=== PATIENT | female | born 1990 | race Caucasian/White ===

== ENCOUNTER 2016-09-18 17:53 | Emergency (ER) | payer SELFPAY ==
[~2016-09-18] VITALS: Ht 152.4 cm; Wt 76.2 kg
[2016-09-18 18:48] VITALS: BP 146/93
--- NOTE | 2016-09-18 18:57 | PHYS DOC ---
Past Medical History Past Medical History: Other Additional Past Medical Histor: desmoid tumor, Past Surgical History: , Tonsillectomy, Other Additional Past Surgical Histo: desmoid tumor removal, Alcohol Use: None Drug Use: None Adult General Chief Complaint Chief Complaint: DENTAL PROBLEM HPI HPI Patient is a 26 year old female who presents with moderate right upper and lower gum dental pain that began 5 days ago. Patient denies any fever or trismus , she states she has an appointment with her dentist on 30 September 2016 Review of Systems Review of Systems Constitutional: See history of present illness Eyes: Denies change in visual acuity, redness, or eye pain [] HENT: Dental pain Integument: Denies rash or skin lesions [] Neurologic: Denies headache, focal weakness or sensory changes [] Endocrine: Denies polyuria or polydipsia [] Allergies Allergies Allergies Coded Allergies Type Severity Reaction Last Updated Verified No Known Drug Allergies 09/18/16 No Physical Exam Physical Exam Constitutional: Well developed, well nourished, no acute distress, non-toxic appearance. [] HENT: Normocephalic, atraumatic, bilateral external ears normal, oropharynx moist, no oral exudates, nose normal. [] Scattered dental caries throughout her teeth, no obvious dental abscess, no gum redness noted. Skin: Warm, dry, no erythema, no rash. [] Back: No tenderness, no CVA tenderness. [] Extremities: No tenderness, no cyanosis, no clubbing, ROM intact, no edema. [] Neurologic: Alert and oriented X 3, normal motor function, normal sensory function, no focal deficits noted. [] Psychologic: Affect normal, judgement normal, mood normal. [] Current Patient Data Vital Signs Vital Signs Date Time Temp Pulse Resp B/P Pulse Ox O2 Delivery O2 Flow Rate FiO2 09/18/16 18:48 98.5 73 18 99 Room Air 98.5 EKG EKG [] Radiology/Procedures Radiology/Procedures [] Course & Med Decision Making Course & Med Decision Making Pertinent Labs and Imaging studies reviewed. (See chart for details) Examination shows patient has scattered dental caries, dental pain with no abscess, discharged with antibiotics and pain medicine. Follow-up with her dentist on September 30, 2016. Provided return precautions and discharged in stable condition. Dragon Disclaimer Dragon Disclaimer This electronic medical record was generated, in whole or in part, using a voice recognition dictation system. Departure Departure Impression: Primary Impression: Dentalgia Additional Impression: Dental caries Disposition: 01 HOME, SELF-CARE Condition: STABLE Referrals: NO PCP (PCP) Follow-up with your own dentist as scheduled Patient Instructions: Dental Caries Additional Instructions: You were seen for dental caries and dental pain. Complete your antibiotics. Take the pain medicine as needed. Follow-up with the dentist as soon as you can. Scripts Amoxicillin 875 Mg Tablet1 Tab PO BID #20 TAB Prov:BHAVNA QUINTEROS APRN 09/18/16 Hydrocodone/Apap 5-325 ([place] 5-325 Tablet)1 Each Tablet1-2 Tab PO Q4-6HRS #12 TAB Prov:BHAVNA QUINTEROS APRN 09/18/16 Problem Qualifiers BHAVNA QUINTEROS APRN Sep 18, 2016 18:57
[2016-09-18] MEDS ORDERED: HYDR-971 PO (19:03)
[2016-09-18] MEDS ORDERED: AMOX875T PO (19:03)
== END 2016-09-18 19:07 | disposition home or self-care (01) ==
LOC: ER 17:56
DX: K02.9 Dental caries, unspecified (principal)
CPT/HCPCS: 99283

== ENCOUNTER 2018-08-26 17:39 | Emergency (ER) | payer SELFPAY ==
[~2018-08-26] VITALS: Ht 152.4 cm; Wt 72.6 kg
[~2018-08-26 17:39] MED LIST: AMOX875T PO; HYDR-3164 PO
[2018-08-26] MEDS ORDERED: MECLIZINE HCL 12.5 MG TABLET. PO ONE (18:30)
--- NOTE | 2018-08-26 18:33 | EKG ---
[facility] [address] [place] [address] Test Date: 2018-08-26 Test Time: 18:29:02 Pat Name: URIEL GRAJEDA Department: Room: Gender: F Instrument Maker: : 1990 Requested By: BHAVNA QUINTEROS Order Number: [id number] Reading MD: Denis Mars Measurements Intervals [place] Rate: 88 P: 67 [place]: 138 QRS: 0 QRSD: 80 T: 21 QT: 380 QTc: 463 Interpretive Statements SINUS RHYTHM LEFTWARD AXIS INCOMPLETE RIGHT BUNDLE BRANCH BLOCK T ABNORMALITY IN ANTEROSEPTAL LEADS ABNORMAL ECG RI6.01 No previous ECG available for comparison Electronically Signed On 09-04-2018 8:03:48 TREASURY ASSISTANT by Denis Mars
--- NOTE | 2018-08-26 18:36 | PHYS DOC ---
Past Medical History Past Medical History: Other Additional Past Medical Histor: desmoid tumor, Past Surgical History: , Tonsillectomy, Other Additional Past Surgical Histo: desmoid tumor removal, Alcohol Use: None Drug Use: None Adult General Chief Complaint Chief Complaint: DIZZY/LIGHT HEADED HPI HPI Patient is a 28 year old female with no significant medical history who presents to the ED today with multiple complaints. Patient states her entire right side from her neck to her toes are swollen, patient states her right lower extremities especially her right thigh can not fit into her regular pants. Patient states this has been going on for 4 days. She is also complaining of pain to right lateral neck, she states every night she sleeps for the last 4 days she wakes up with numbness and tingling to the entire right side of her body. Patient is also complaining of dizziness for the last 4 days. Patient denies anything exacerbating or making the dizziness better. She states she missed work for a couple days last week. 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 Patient also states she's not had sleep for the last 4 days. She states she would like to be admitted. Denies any injury. Patient is crying as we speak. Denies any suicidal homicidal ideations. She states she does not have any stress. Informed patient she is crying in a situation that does not involve tears him curious if she has an underlying psychiatric problems like or stress. She continued to deny saying she does not have any psychiatric illness or any other stressors in her life. PCP none Review of Systems Review of Systems Constitutional: Denies fever or chills [] Eyes: Denies change in visual acuity, redness, or eye pain [] HENT: Denies nasal congestion or sore throat [] Respiratory: Denies cough or shortness of breath [] Cardiovascular: No additional information not addressed in HPI [] GI: Denies abdominal pain, nausea, vomiting, bloody stools or diarrhea [] : Denies dysuria or hematuria [] Musculoskeletal: Right sided swelling, pain Integument: Denies rash or skin lesions [] Neurologic: Denies headache, focal weakness or sensory changes [] All other systems were reviewed and found to be within normal limits, except as documented in this note. Current Medications Current Medications Current Medications Medications (Trade) Dose Ordered Sig/Randa Start Time Stop Time Status Last Admin Dose Admin Meclizine HCl (Antivert) 25 mg 1X ONCE 08/26/18 18:30 08/26/18 18:36 DC 08/26/18 19:11 25 MG Allergies Allergies Allergies Coded Allergies Type Severity Reaction Last Updated Verified hydrocodone Allergy Intermediate HIVES 08/26/18 Yes Physical Exam Physical Exam Constitutional: Well developed, well nourished, no acute distress, non-toxic appearance. [] HENT: Normocephalic, atraumatic, bilateral external ears normal, oropharynx moist, no oral exudates, nose normal. [] Eyes: PERRLA, EOMI, conjunctiva normal, no discharge. [] Neck: Normal range of motion, no tenderness, supple, no stridor. [] Cardiovascular:Heart rate regular rhythm, no murmur [] Lungs & Thorax: Bilateral breath sounds clear to auscultation [] Abdomen: Bowel sounds normal, soft, no tenderness, no masses, no pulsatile masses. [] Skin: Warm, dry, no erythema, no rash. [] Back: No tenderness, no CVA tenderness. [] Extremities: No tenderness, no cyanosis, no clubbing, ROM intact, no edema. [] Neurologic: Alert and oriented X 3, normal motor function, normal sensory function, no focal deficits noted. Cranial nerves II through XII intact Psychologic: Appears tearful, depressed mood Current Patient Data Vital Signs Vital Signs Date Time Temp Pulse Resp B/P (MAP) Pulse Ox O2 Delivery O2 Flow Rate FiO2 08/26/18 17:39 98.4 107 20 140/80 (100) 97 Room Air 98.4 Lab Values Laboratory Tests Test 08/26/18 18:10 08/26/18 18:17 08/26/18 18:21 08/26/18 18:35 Urine Collection Type Unknown Urine Color Yellow Urine Clarity Clear Urine pH 6.0 Urine Specific Alexander 1.025 Urine Protein Negative mg/dL (NEG-TRACE) Urine Glucose (UA) Negative mg/dL (NEG) Urine Ketones (Stick) >=80 mg/dL (NEG) Urine Blood Trace (NEG) Urine Nitrite Negative (NEG) Urine Bilirubin Negative (NEG) Urine Urobilinogen Dipstick 0.2 mg/dL (0.2 mg/dL) Urine Leukocyte Esterase Negative (NEG) Urine RBC 1-2 /HPF (0-2) Urine WBC Rare /HPF (0-4) Urine Squamous Epithelial Cells Few /LPF Urine Bacteria 0 /HPF (0-FEW) Urine Mucus Mod /LPF Urine Opiates Screen Neg (NEG) Urine Methadone Screen Neg (NEG) Urine Barbiturates Neg (NEG) Urine Phencyclidine Screen Neg (NEG) Urine Amphetamine/Methamphetamine Neg (NEG) Urine Benzodiazepines Screen Neg (NEG) Urine Cocaine Screen Neg (NEG) Urine Cannabinoids Screen Pos (NEG) Urine Ethyl Alcohol Neg (NEG) POC Urine HCG, Qualitative Hcg negative (Negative) Glucose (Fingerstick) 92 mg/dL (70-99) White Blood Count 6.3 x10^3/uL (4.0-11.0) Red Blood Count 4.77 x10^6/uL (3.50-5.40) Hemoglobin 14.4 g/dL (12.0-15.5) Hematocrit 41.8 % (36.0-47.0) Mean Corpuscular Volume 88 fL (79-100) Mean Corpuscular Hemoglobin 30 pg (25-35) Mean Corpuscular Hemoglobin Concent 35 g/dL (31-37) Red Cell Distribution Width 13.0 % (11.5-14.5) Platelet Count 231 x10^3/uL (140-400) Neutrophils (%) (Auto) 57 % (31-73) Lymphocytes (%) (Auto) 33 % (24-48) Monocytes (%) (Auto) 9 % (0-9) Eosinophils (%) (Auto) 1 % (0-3) Basophils (%) (Auto) 1 % (0-3) Neutrophils # (Auto) 3.6 x10^3uL (1.8-7.7) Lymphocytes # (Auto) 2.1 x10^3/uL (1.0-4.8) Monocytes # (Auto) 0.6 x10^3/uL (0.0-1.1) Eosinophils # (Auto) 0.0 x10^3/uL (0.0-0.7) Basophils # (Auto) 0.0 x10^3/uL (0.0-0.2) Test 08/26/18 19:30 Sodium Level 142 mmol/L (136-145) Potassium Level 3.2 mmol/L (3.5-5.1) L Chloride Level 106 mmol/L (98-107) Carbon Dioxide Level 21 mmol/L (21-32) Anion Gap 15 (6-14) H Blood Urea Nitrogen 7 mg/dL (7-20) Creatinine 0.7 mg/dL (0.6-1.0) Estimated GFR (Cockcroft-Gault) 98.9 BUN/Creatinine Ratio 10 (6-20) Glucose Level 94 mg/dL (70-99) Calcium Level 9.5 mg/dL (8.5-10.1) Magnesium Level 1.6 mg/dL (1.8-2.4) L Total Bilirubin 0.4 mg/dL (0.2-1.0) Aspartate Amino Transferase (AST) 12 U/L (15-37) L Alanine Aminotransferase (ALT) 12 U/L (14-59) L Alkaline Phosphatase 51 U/L (46-116) Troponin I Quantitative < 0.017 ng/mL (0.000-0.055) IE-[id number]-Type Natriuretic Peptide 112 pg/mL (0-124) Total Protein 7.8 g/dL (6.4-8.2) Albumin 4.3 g/dL (3.4-5.0) Albumin/Globulin Ratio 1.2 (1.0-1.7) Lipase 89 U/L (73-393) Thyroid Stimulating Hormone (TSH) 1.125 uIU/mL (0.358-3.74) Laboratory Tests 08/26/18 18:35 Laboratory Tests 08/26/18 19:30 EKG EKG 18:[address] Donahue sinus rhythm heart rate 88 no STEMI[] Radiology/Procedures Radiology/Procedures [] Course & Med Decision Making Course & Med Decision Making Pertinent Labs and Imaging studies reviewed. (See chart for details) This is a 28-year-old female patient presenting to the ED today with multiple complaints including right sided numbness for 4 days, right-sided swelling, right lateral neck pain, lack of sleep, dizziness, symptoms for 4 days. She also missed a couple days of work last week. She states her mother requested her to come to the ED to be evaluated. Patient has no notable edema. Negative urine hCG, urine analysis is no infection. CBC with a normal WBC, EKG was negative, CMP potassium of 3.2, patient was given oral potassium replacement. CT of the head is negative for any acute findings, chest x-ray and cervical spine x-rays interpreted by Dr. Donahue and negative for any acute findings. Results were communicated to patient, she started crying again stating she has pain on the entire right side. Recommended anti-inflammatories and muscle relaxer. She continued to cry. Recommended she follows up with her PCP. She states she does not want to leave because we did not find anything wrong with her. Informed patient she does not meet the admission criteria. She needs to be discharged and follow-up with the primary care doctor provided. Patient started crying again. She was discharged to home. Dragon Disclaimer Dragon Disclaimer This electronic medical record was generated, in whole or in part, using a voice recognition dictation system. Departure Departure Impression: Primary Impression: Dizziness Additional Impression: Paresthesia Disposition: HOME, SELF-CARE Condition: STABLE Referrals: NO PCP (PCP) Follow up with the primary care doctor from the list provided Patient Instructions: Dizziness, [id number], Paresthesia Additional Instructions: You were evaluated in the emergency room and had an extensive workup including a CT of the head, cervical spine x-ray, chest x-ray, which were negative for any acute findings, your labs was negative for any acute findings. We provided you list of primary care doctors, follow-up with them as an outpatient. Scripts Methylprednisolone (MEDROL) 4 Mg Tab.ds.pk 1 PKG PO UD, #1 PKG Prov: BHAVNA QUINTEROS APRN 08/26/18 Diclofenac Sodium (DICLOFENAC SODIUM) 50 Mg Tablet.dr 1 TAB PO BID, #20 TAB 0 Refills Prov: BHAVNA QUINTEROS APRN 08/26/18 Gabapentin (GABAPENTIN) 800 Mg Tablet 800 MG PO TID for NEUROGENIC PAIN, #20 TAB Prov: BHAVNA QUINTEROS APRN 08/26/18 Cyclobenzaprine Hcl (CYCLOBENZAPRINE HCL) 10 Mg Tablet 1 TAB PO TID, #20 TAB Prov: BHAVNA QUINTEROS APRN 08/26/18 Problem Qualifiers BHAVNA QUINTEROS APRN Aug 26, 2018 18:36
[2018-08-26 18:38] LABS: BILIRUBIN,URINE NEGATIVE (NEG); CLARITY,URINE CLEAR; COLOR,URINE YELLOW; NITRITE,URINE NEGATIVE (NEG); PROTEIN,URINE NEGATIVE (NEG-TRACE); UROBILINOGEN,URINE 0.2 mg/dL (0.2 mg/dL)
[2018-08-26 18:44] LABS: BACTERIA,URINE 0 /HPF (0-FEW); SQUAMOUS EPITHELIAL CELL,UR FEW /LPF; WBC,URINE RARE /HPF (0-4)
[2018-08-26 18:45] LABS: AMPHETAMINE/METHAMPHETAMINE NEG (NEG); BARBITURATES NEG (NEG); BENZODIAZEPINES NEG (NEG); CANNABINOIDS POS (NEG); COCAINE NEG (NEG); METHADONE NEG (NEG); OPIATES NEG (NEG); PHENCYCLIDINE NEG (NEG)
[2018-08-26 18:46] LABS: BASO % 1 % (0-3); EOS % 1 % (0-3); HEMATOCRIT 41.8 % (36.0-47.0); HEMOGLOBIN 14.4 g/dL (12.0-15.5); LYMPH # 2.1 x10^3/uL (1.0-4.8); LYMPH % 33 % (24-48); MEAN CORPUSCULAR HEMOGLOBIN 30 pg (25-35); MEAN CORPUSCULAR HGB CONC 35 g/dL (31-37); MEAN CORPUSCULAR VOLUME 88 fL (79-100); MONO # 0.6 x10^3/uL (0.0-1.1); MONO % 9 % (0-9); NEUT # 3.6 x10^3uL (1.8-7.7); NEUT % 57 % (31-73); PLATELET COUNT 231 x10^3/uL (140-400); RED BLOOD COUNT 4.77 x10^6/uL (3.50-5.40); WHITE BLOOD COUNT 6.3 x10^3/uL (4.0-11.0)
--- NOTE | 2018-08-26 19:10 | RAD ---
INDICATION: dizziness and neck pain, with nausea and vomiting COMPARISON: None. TECHNIQUE: Axial CT images obtained through the head without intravenous contrast. One or more of the following individualized dose reduction techniques were utilized for this examination: 1. Automated exposure control; 2. Adjustment of the mA and/or kV according to patient size; 3. Use of iterative reconstruction technique. FINDINGS: No intracranial hemorrhage. No midline shift. Basal cisterns patent. Ventricles and sulci are unremarkable. No acute osseous abnormality. Orbits and paranasal sinuses unremarkable. IMPRESSION: 1. No acute intracranial hemorrhage. Electronically signed by: Kale Elizondo MD (08/26/2018 7:06 PM) [facility]
[2018-08-26 19:53] LABS: CALCIUM 9.5 mg/dL (8.5-10.1); CREATININE 0.7 mg/dL (0.6-1.0); GFR 98.9; POTASSIUM 3.2 mmol/L (3.5-5.1)
[2018-08-26 19:57] LABS: ALBUMIN 4.3 g/dL (3.4-5.0); ALBUMIN/GLOBULIN RATIO 1.2 (1.0-1.7); MAGNESIUM 1.6 mg/dL (1.8-2.4); TOTAL BILIRUBIN 0.4 mg/dL (0.2-1.0); TOTAL PROTEIN 7.8 g/dL (6.4-8.2)
[2018-08-26] MEDS ORDERED: DICL50TA4 PO (20:26)
[2018-08-26] MEDS ORDERED: METH4TAB2 PO (20:26)
[2018-08-26] MEDS ORDERED: CYCL10TA2 PO (20:26)
[2018-08-26] MEDS ORDERED: GABA800T3 PO (20:26)
[2018-08-26 20:30] VITALS: BP 132/75
[2018-08-26] MEDS ORDERED: POTASSIUM CHLORIDE 20 MEQ TABLET.ER. PO ONE (20:30)
--- NOTE | 2018-08-27 00:23 | RAD ---
Chest AP portable 08/26/2018. Reason for exam: Dizziness and right-sided neck pain for 4 days. No infiltrate or effusion is seen. Heart size and pulmonary vascularity appear normal. IMPRESSION: No acute abnormality. Cervical spine AP lateral and swimmer's views 08/26/2018 Alignment is normal. There is no apparent loss of vertebral body height or prevertebral soft tissue swelling to suggest fracture. No disc narrowing or destructive process is seen. IMPRESSION: Normal study. Electronically signed by: Haja Wallace Jr., MD (08/27/2018 12:19 AM) [facility]
[2018-08-28] MEDS ORDERED: FLUO20CA16 PO (17:42)
[2018-08-28] MEDS ORDERED: ALPR0.5T PO (17:43)
== END 2018-08-26 20:57 | disposition home or self-care (01) ==
LOC: ER 17:39
DX: R42 Dizziness and giddiness (principal); R20.2 Paresthesia of skin; M54.2 Cervicalgia; R22.9 Localized swelling, mass and lump, unspecified; Z88.5 Allergy status to narcotic agent
CPT/HCPCS: 36415; 70450; 71045; 72040; 80053; 80307; 81001; 81025; 82962; 83690; 83735; 83880; 84443; 84484; 85025; 93005; 99284; J8597

== ENCOUNTER 2018-09-17 21:39 | Emergency (ER) | payer SELFPAY ==
[~2018-09-17] VITALS: Ht 152.4 cm; Wt 74.8 kg
[~2018-09-17 21:39] MED LIST changes: +ALPR0.5T PO; +CYCL10TA2 PO; +DICL50TA4 PO; +FLUO20CA16 PO; +GABA800T3 PO; +METH4TAB2 PO
[2018-09-17 22:31] LABS: BASO # 0.1 x10^3/uL (0.0-0.2); BASO % 1 % (0-3); EOS # 0.3 x10^3/uL (0.0-0.7); EOS % 4 % (0-3); HEMATOCRIT 42.1 % (36.0-47.0); HEMOGLOBIN 14.4 g/dL (12.0-15.5); LYMPH # 2.1 x10^3/uL (1.0-4.8); LYMPH % 22 % (24-48); MEAN CORPUSCULAR HEMOGLOBIN 30 pg (25-35); MEAN CORPUSCULAR HGB CONC 34 g/dL (31-37); MEAN CORPUSCULAR VOLUME 89 fL (79-100); MONO # 0.6 x10^3/uL (0.0-1.1); MONO % 6 % (0-9); NEUT # 6.6 x10^3uL (1.8-7.7); NEUT % 68 % (31-73); PLATELET COUNT 288 x10^3/uL (140-400); RED BLOOD COUNT 4.74 x10^6/uL (3.50-5.40); RED CELL DISTRIBUTION WIDTH 13.3 % (11.5-14.5); WHITE BLOOD COUNT 9.7 x10^3/uL (4.0-11.0)
[2018-09-17 22:39] LABS: CALCIUM 8.9 mg/dL (8.5-10.1); CREATININE 0.7 mg/dL (0.6-1.0); GFR 98.9; POTASSIUM 3.1 mmol/L (3.5-5.1)
[2018-09-17] MEDS: IV NORMAL SALINE 1000ML BAG 1,000 ML IV ONE (22:46)
[2018-09-17 22:47] LABS: BILIRUBIN,URINE SMALL (NEG); COLOR,URINE YELLOW; NITRITE,URINE NEGATIVE (NEG); PH,URINE 5.5; PROTEIN,URINE NEGATIVE (NEG-TRACE); UROBILINOGEN,URINE 0.2 mg/dL (0.2 mg/dL)
[2018-09-17 22:53] LABS: BACTERIA,URINE 0 /HPF (0-FEW); CLARITY,URINE HAZY; RBC,URINE 0 /HPF (0-2); SQUAMOUS EPITHELIAL CELL,UR FEW /LPF; WBC,URINE 0 /HPF (0-4)
[2018-09-17] MEDS: POTASSIUM CHLORIDE 20 MEQ TABLET.ER. PO ONE (23:32)
--- NOTE | 2018-09-17 23:42 | PHYS DOC ---
Past Medical History Past Medical History: Other Additional Past Medical Histor: desmoid tumor Past Surgical History: , Tonsillectomy, Other Additional Past Surgical Histo: desmoid tumor removal Alcohol Use: None Drug Use: Marijuana Adult General Chief Complaint Chief Complaint: WEAKNESS/GENERALIZED HPI HPI Patient is a 28 year old female who presents with concerns of a possible infected tattoo on her left foot. Pt states she received the tattoo on 09/12/18 and states that yesterday she noticed redness and mild swelling around the ink. She denies any warmth or drainage from the area. States that after she poured peroxide over the tattoo today she had one episode of diarrhea. She denies any fever, abdominal pain, nausea, vomiting, shortness of breath, cough, or sore throat. She states that she was diaphoretic before the episode of diarrhea. Currently, she denies any pain or discomfort. Review of Systems Review of Systems Constitutional: Denies fever or chills [] HENT: Denies nasal congestion or sore throat [] Respiratory: Denies cough or shortness of breath [] Cardiovascular: No additional information not addressed in HPI [] GI: Denies abdominal pain, nausea, or vomiting; see HPI Musculoskeletal: Denies back pain or joint pain [] Integument: See HPI Neurologic: Denies headache, focal weakness or sensory changes [] Complete systems were reviewed and found to be within normal limits, except as documented in this note. Current Medications Current Medications Current Medications Medications (Trade) Dose Ordered Sig/Randa Start Time Stop Time Status Last Admin Dose Admin Potassium Chloride (Klor-Con) 40 meq 1X ONCE 09/17/18 23:30 09/17/18 23:31 DC 09/17/18 23:32 40 MEQ Sodium Chloride 1,000 ml @ 1,000 mls/hr 1X ONCE 09/17/18 22:45 09/17/18 23:44 09/17/18 22:46 1,000 MLS/HR Allergies Allergies Allergies Coded Allergies Type Severity Reaction Last Updated Verified hydrocodone Allergy Intermediate HIVES 08/26/18 Yes codeine Allergy Unknown 09/17/18 Yes Physical Exam Physical Exam Constitutional: Well developed, well nourished, no acute distress, non-toxic appearance. [] HENT: Normocephalic, atraumatic, bilateral external ears normal, oropharynx moist, no oral exudates, nose normal. [] Eyes: conjunctiva normal, no discharge. [] Neck: Normal range of motion, no stridor. [] Cardiovascular:Heart rate regular rhythm, no murmur [] Lungs & Thorax: Bilateral breath sounds clear to auscultation [] Abdomen: Bowel sounds normal, soft, no tenderness, no masses, no pulsatile masses. [] Skin: Warm, dry, no rash; healing tattoo noted to left foot with mild surrounding erythema, no warmth, edema, or tenderness to palpation. Extremities: No tenderness, no cyanosis, no clubbing, ROM intact, no edema. [] Neurologic: Alert and oriented X 3, normal motor function, normal sensory function, no focal deficits noted. [] Psychologic: Affect normal, judgement normal, mood normal. [] Current Patient Data Vital Signs Vital Signs Date Time Temp Pulse Resp B/P (MAP) Pulse Ox O2 Delivery O2 Flow Rate FiO2 09/17/18 23:18 94 100 09/17/18 21:44 97.4 20 142/91 (108) Room Air 97.4 Lab Values Laboratory Tests Test 09/17/18 22:21 09/17/18 22:35 White Blood Count 9.7 x10^3/uL (4.0-11.0) Red Blood Count 4.74 x10^6/uL (3.50-5.40) Hemoglobin 14.4 g/dL (12.0-15.5) Hematocrit 42.1 % (36.0-47.0) Mean Corpuscular Volume 89 fL (79-100) Mean Corpuscular Hemoglobin 30 pg (25-35) Mean Corpuscular Hemoglobin Concent 34 g/dL (31-37) Red Cell Distribution Width 13.3 % (11.5-14.5) Platelet Count 288 x10^3/uL (140-400) Neutrophils (%) (Auto) 68 % (31-73) Lymphocytes (%) (Auto) 22 % (24-48) L Monocytes (%) (Auto) 6 % (0-9) Eosinophils (%) (Auto) 4 % (0-3) H Basophils (%) (Auto) 1 % (0-3) Neutrophils # (Auto) 6.6 x10^3uL (1.8-7.7) Lymphocytes # (Auto) 2.1 x10^3/uL (1.0-4.8) Monocytes # (Auto) 0.6 x10^3/uL (0.0-1.1) Eosinophils # (Auto) 0.3 x10^3/uL (0.0-0.7) Basophils # (Auto) 0.1 x10^3/uL (0.0-0.2) Sodium Level 138 mmol/L (136-145) Potassium Level 3.1 mmol/L (3.5-5.1) L Chloride Level 103 mmol/L (98-107) Carbon Dioxide Level 24 mmol/L (21-32) Anion Gap 11 (6-14) Blood Urea Nitrogen 11 mg/dL (7-20) Creatinine 0.7 mg/dL (0.6-1.0) Estimated GFR (Cockcroft-Gault) 98.9 Glucose Level 158 mg/dL (70-99) H Calcium Level 8.9 mg/dL (8.5-10.1) Urine Collection Type Unknown Urine Color Yellow Urine Clarity Hazy Urine pH 5.5 Urine Specific [place] 1.025 Urine Protein Negative mg/dL (NEG-TRACE) Urine Glucose (UA) Negative mg/dL (NEG) Urine Ketones (Stick) 40 mg/dL (NEG) Urine Blood Negative (NEG) Urine Nitrite Negative (NEG) Urine Bilirubin Small (NEG) Urine Urobilinogen Dipstick 0.2 mg/dL (0.2 mg/dL) Urine Leukocyte Esterase Negative (NEG) Urine RBC 0 /HPF (0-2) Urine WBC 0 /HPF (0-4) Urine Squamous Epithelial Cells Few /LPF Urine Bacteria 0 /HPF (0-FEW) Urine Mucus Mod /LPF Laboratory Tests 09/17/18 22:21 Laboratory Tests 09/17/18 22:21 EKG EKG [] Radiology/Procedures Radiology/Procedures [] Course & Med Decision Making Course & Med Decision Making Pertinent Labs and Imaging studies reviewed. (See chart for details) Pt was given 40 meq of potassium and 1L NS in the ER. CBC unremarkable, potassium 3.1, blood glucose 158, UA unremarkable. Physical exam not concerning for infection of tattoo. Patient verbalized an understanding of home care, medications, follow-up, and return to ED instructions and was in agreement with the plan of care. [] Dragon Disclaimer Dragon Disclaimer This electronic medical record was generated, in whole or in part, using a voice recognition dictation system. Departure Departure Impression: Primary Impression: Diarrhea Additional Impressions: Hypokalemia Tattoo reaction Disposition: 01 HOME, SELF-CARE Condition: STABLE Referrals: NO PCP (PCP) Patient Instructions: Diarrhea, [id number], Hypokalemia-Brief, Tattoo, Care After Additional Instructions: Recommend clear fluids for the next 24 hours. Then you may advance to bland foods such as bananas, rice, applesauce, and dry toast. Follow-up with your primary care doctor in the next 1-2 days. Return to the emergency room if your symptoms worsen. Problem Qualifiers Primary Impression: Diarrhea Diarrhea type: unspecified type Qualified Codes: R19.7 - Diarrhea, unspecified RANDI ARGUETA APRN Sep 17, 2018 23:42
[2018-09-17 23:50] VITALS: BP 147/82
== END 2018-09-17 23:55 | disposition home or self-care (01) ==
LOC: ER 21:39
DX: L81.8 Other specified disorders of pigmentation (principal); R19.7 Diarrhea, unspecified; E87.6 Hypokalemia; Z98.890 Other specified postprocedural states; Z90.89 Acquired absence of other organs; Z88.5 Allergy status to narcotic agent
CPT/HCPCS: 36415; 80048; 81001; 85025; 96360; 99283; J7030